=== PATIENT | female | born 1980 | race Caucasian/White ===

== ENCOUNTER 2017-04-23 16:24 | Emergency (ER) | payer BC ==
--- NOTE | 2017-05-11 16:41 | ER ---
ADMIT: 04/23/2017 RM/LOC: ER [facility] MR#: [id number] [id number] [address] [place] [address] Emergency Room Report SEX: F AGE: 36 : 1980 DATE: 04/23/2017 A 36-year-old female, who comes to the Emergency Department with complaints of fast racing heart and lightheadedness. See T-sheet for history and physical. Chest x-ray was unremarkable. EKG was normal. Her electrolytes were significant for potassium of 3.4. She was given 40 mEq potassium in the Emergency Department. Her TSH was 2.540. The patient was discharged on a 48- hour Holter monitor. DIAGNOSIS: Palpitations. Instructed to follow up with her primary doctor this week. Pascual Viveros MD/ demetri JOB #: [id number] CC: Ajith Montejo MD, Attending Physician Lata Medina, Family Physician
== END 2017-04-23 18:20 | disposition home or self-care (01) ==
LOC: ER 16:24
DX: R00.2 Palpitations (principal)